=== PATIENT | male | born 1940 | race African-American/Black ===

== ENCOUNTER 2023-06-16 13:37 | Emergency (ER) | payer OTHER ==
[~2023-06-16] VITALS: Ht 185.4 cm; Wt 91.0 kg
[2023-06-16 13:42] VITALS: O2SAT 61
[2023-06-16 13:50] VITALS: BP 138/81; PULSE 81; RESP 22
[2023-06-16 14:05] LABS: HEMATOCRIT. 40.1 % (42.0-52.0); MEAN CORPUSCULAR HEMOGLOBIN 28.6 pg (28.0-32.0); MEAN CORPUSCULAR HGB CONC 32.4 g/dL (31.0-37.0); MEAN CORPUSCULAR VOLUME 88.2 fL (80.0-94.0); MEAN PLATELET VOLUME 7.4 fl (7.4-10.4); PLATELET 177 x1000/uL (130-400); RED BLOOD CELL COUNT 4.55 mill/uL (4.7-6.1); RED CELL DISTRIBUTION WIDTH 16.1 % (11.6-14.6); WHITE BLOOD COUNT 14.8 x1000/uL (4.5-11.0)
[2023-06-16] MEDS: SODIUM CHLORIDE 0.9% 1,000 ML IV ONE (14:10)
[2023-06-16 14:12] LABS: CHLORIDE 106 mEq/L (98-107); POTASSIUM 4.3 mEq/L (3.5-5.1); SODIUM 142 mEq/L (136-145)
[2023-06-16 14:13] LABS: CALCIUM 8.8 mg/dL (8.7-10.4); CARBON DIOXIDE 28 mEq/L (21-32); DIFFERENTIAL COMMENT 1
[2023-06-16 14:18] LABS: CREATININE 0.3 mg/dL (0.6-1.3); GLUCOSE 146 mg/dL (70-105); TROPONIN I HIGH SENSITIVITY 47 ng/L (3.0-53); UREA NITROGEN BLOOD 14 mg/dL (9-23)
[2023-06-16 14:19] LABS: AMMONIA 64 uMol/L (<32)
[2023-06-16 14:20] LABS: ACETAMINOPHEN < 2 ug/mL (10-30); ALANINE AMINOTRANSFERASE 130 IU/L (10-49); ALBUMIN 3.4 g/dL (3.2-4.8); ASPARTATE AMINOTRANSFERASE 141 IU/L (<34); BILIRUBIN TOTAL 0.6 mg/dL (0.1-1.0)
[2023-06-16 14:25] LABS: ETHANOL BLOOD < 10 mg/dL (<10)
[2023-06-16 14:32] LABS: PLATELET ESTIMATE NORMAL
== END 2023-06-16 16:46 ==
LOC: ER 13:37 → CANBEDREQ 16:02 → ER 16:46
DX: I46.9 Cardiac arrest, cause unspecified (principal); E11.9 Type 2 diabetes mellitus without complications; E78.00 Pure hypercholesterolemia, unspecified; I10 Essential (primary) hypertension
CPT/HCPCS: 80053; 80307; 80329; 80320; 82140; 83880; 83605; 84443; 85025; 84484; 36415; 94660; 93005; 99291; J7030; C1893; G0480